=== PATIENT | female | born 1940 | race Caucasian/White ===

== ENCOUNTER 2022-08-21 16:38 | Emergency (ER) | payer MEDICARE, SELFPAY ==
[2022-08-21] VITALS (13 sets, daily range): BP systolic 151–198; BP diastolic 62–94; PULSE 55–68; RESP 15–23; TEMP 36.6–36.8; O2SAT 95–98
--- NOTE | ~2022-08-21 | XR_ITS ---
EXAMINATION: XR ankle RT min 3V, XR tibia fibula RT 2V DATE: 08/21/2022 19:04 INDICATION: Right ankle and lower leg pain TECHNIQUE: 1. Anteroposterior and lateral views of the right tibia and fibula were obtained on overlapping proxi mal and distal images. 2. Anteroposterior, oblique, mortise, and lateral views of the right ankle were obtained. COMPARISON: None. FINDINGS: Patella tabby. Alignment is otherwise normal. No acute fracture. Small triangular corticated ossicle s ituated between the talus and the tip of the lateral malleolus likely heterotopic ossification relate d to chronic lateral ankle sprain. Small Achilles calcaneal enthesophyte. Joint spaces appear relativ conchita preserved. No right knee or ankle joint effusion.. IMPRESSION: 1. Age-indeterminate patella tabby. No acute osseous abnormality at the right lower leg or ankle. Reviewed, dictated and finalized at location A. IMPRESSION: 1. Age-indeterminate patella tabby. No acute osseous abnormality at the right lo wer leg or ankle.
--- NOTE | ~2022-08-21 | CT_ITS ---
EXAMINATION: CTA chest PE protocol DATE: 08/21/2022 18:54 INDICATION: Lower limb pain and elevated d-dimer. TECHNIQUE: Computed tomography (CT) pulmonary angiogram of the chest was performed with 100 mL Omnipa que-350 intravenous contrast. Additional 3D reconstructions utilizing coronal maximum intensity proje ction (MIP) were performed. Automated exposure control and iterative reconstruction technique were em ployed. The dose-length product was 401.51 mGy-cm. COMPARISON: None FINDINGS: Excellent contrast opacification of the pulmonary arteries. There is mild streak artifact from dense contrast in the superior vena cava and right atrium. No significant motion artifact yielding diagnost ic quality study which demonstrates no pulmonary embolism. Mild upper lung predominant emphysema. Mil d discoid atelectasis at the lingula. No pneumonia, pulmonary edema or pleural effusion. Heart size i s normal. Atherosclerotic coronary artery calcific lesion. Aortic valve calcification. These from asc ending thoracic aortic aneurysm measuring up to 4.6 x 4.4 cm maximal diameter. No pathologically enla rged thoracic lymphadenopathy. Cholecystectomy clips at the gallbladder fossa. Visualized upper abdom en is otherwise unremarkable. A few Schmorl's nodes and mild anterior wedging of a few vertebral bodi es in the lower thoracic and upper lumbar spine. IMPRESSION: 1. No pulmonary embolism or other acute cardiopulmonary disease. 2. Mild emphysema. 3. Aortic valve calcific lesion and mild fusiform aneurysm of the ascending thoracic aorta measuring up to 4.6 mm in maximal diameter. Reviewed, dictated and finalized at location A. IMPRESSION: 1. No pulmonary embolism or other acute cardiopulmonary disease. 2. Mild emphysema. 3. Aortic valve calcific lesion and mild fusiform aneurysm of the ascending tho racic aorta measuring up to 4.6 mm in maximal diameter.
--- NOTE | ~2022-08-21 | US_ITS ---
EXAMINATION: US venous doppler [facility] DATE: 08/21/2022 19:07 INDICATION: Bilateral lower limb pain TECHNIQUE: Grayscale ultrasound images without and with compression and Doppler ultrasound images of the bilateral lower extremity veins were obtained. COMPARISON: None. FINDINGS: The visualized portions of right common femoral vein, profunda (deep) femoral vein, femoral vein, pop liteal vein, posterior tibial veins, peroneal veins, gastrocnemius vein and greater saphenous vein ou tflow are patent. The visualized portions of left common femoral vein, profunda femoral vein, femoral vein, popliteal v ein, posterior tibial veins, peroneal veins, gastrocnemius vein and greater saphenous vein outflow ar e patent. IMPRESSION: 1. No deep venous thrombosis in either lower limb. Reviewed, dictated and finalized at location A.
--- NOTE | 2022-08-21 17:47 | ED.EXTPRO ---
HPI - Extremity Problem General Chief complaint: Extremity Problem,Nontraumatic Stated complaint: R leg DVT R/O Time Seen by Provider: 08/21/22 16:59 History of Present Illness HPI Narrative: 82 y/o F with a history of PVD, COPD, lumbosacral radiculopathy, CKD, chronic pain reports for evaluation of chronic leg pain, R>L x many years , worse in the R leg over the past 2 weeks. She has been evaluated multiple times over the past few years for the same pain. States since the R leg worsened she schedules an appointment with her PCP 2 days ago. States her PCP called her today to tell her to go to the ED because she may have a blood clot and needs a CT scan of her whole body. Her blood work on chart review shows an unremarkable CBC, elevated D-dimer of 1.05, unremarkable chemistries other than a creatinine 1.28 and GFR 41. Patient reports the right leg pain extends from her ankle to her knee, is worse with walking and standing for long periods of time. She reports peripheral neuropathy which is unchanged from baseline and sciatica which is unchanged from baseline. She denies strength deficits, loss of bowel or bladder control, saddle anesthesia, fever, rash. She reports shortness of breath which is unchanged from baseline. Denies chest pain. Related Data Home Medications Medication Instructions Recorded Confirmed cholecalciferol (vitamin D3) 50 50 mcg PO DAILY 01/07/22 mcg (2,000 unit) capsule mecobalamin (vitamin B12) 1,000 1,000 mcg PO DAILY 01/07/22 mcg chewable tablet Allergies Allergy/AdvReac Type Severity Reaction Status Date / Time Macrolide Antibiotics Allergy Unknown All Verified 08/19/22 11:25 antibiotics give patient diarrhea azithromycin AdvReac Unknown Unknown Verified 08/19/22 11:25 doxycycline AdvReac Unknown Unknown Verified 08/19/22 11:25 Penicillins AdvReac Unknown Unknown Verified 08/19/22 11:25 Review of Systems Review of Systems: CONSTITUTIONAL: Denies fever, chills EYES: Denies visual changes, redness, or discharge. ENT: Denies rhinorrhea, congestion, sore throat, or otalgia. CARDIOVASCULAR: Denies chest pain, palpitations, or edema. RESPIRATORY: See HPI GASTROINTESTINAL: Denies abdominal pain, nausea, vomiting, or diarrhea. GENITOURINARY: Denies dysuria or hematuria. SKIN: Denies rash or itching. MUSCULOSKELETAL: See HPI NEUROLOGIC: Denies headache, numbness, dizziness, or weakness. PSYCHIATRIC: Denies anxiety or depression. COUNT INCLUDES THE [facility] Past Medical History Medical History History of colon cancer Levoscoliosis Lumbosacral radiculopathy Vitamin D deficiency Surgical History Surgical History H/O: hysterectomy History of appendectomy History of cholecystectomy History of colon resection Family History Family History Sibling Carcinoma of colon, Onset Age: 68 Mother Family history of lung cancer Father Family history of lung cancer, Onset Age: 85 Social History Social History Smoking status: Light tobacco smoker Alcohol intake: never Substance use: never Living arrangements: alone Occupation/Education: retired Agree to blood products: Yes Exam Narrative: GENERAL: Well-appearing, in no acute distress. HEAD: Normocephalic EYES: PERRLA ENT: Nares clear. Mucous membranes moist. Oropharynx without tonsillar hypertrophy exudate or other lesions. NECK: Supple. CHEST: No respiratory distress. Clear to auscultation, no adventitious breath sounds. HEART: Regular rate and rhythm. No murmur heard. Normal peripheral pulses. ABDOMEN: Soft, nontender, normal active bowel sounds. EXTREMITIES: RLE: Tenderness to palpation of the calf and ankle. LLE: No tenderness. Bilateral feet with sensation intact, norm
--- NOTE | 2022-08-21 17:56 | PC.NURSE ---
assessed RLE pedal pulse with bedside doppler at this time.
[2022-08-21 18:34] LABS: Basophils Absolute Auto 0.1 K/mm3 (0.0-0.1); Basophils Percent Auto 0.7 % (0.2-1.2); Eosinophils Absolute Auto 0.2 K/mm3 (0-0.3); Eosinophils Percent Auto 1.5 % (0-4.4); Hematocrit 45.1 % (37.0-47.0); Hemoglobin 15.2 g/dL (12.0-15.0); Immature Granulocyte Absolute 0.02 K/mm3 (0.00-0.031); Immature Granulocyte Percent A 0.2 % (0-0.5); Lymphocytes Absolute Auto 1.15 K/mm3 (0.9-3.2); Lymphocytes Percent Auto 11.7 % (18.3-44.2); Mean Corpuscular HGB Conc 33.7 g/dl (32-36); Mean Corpuscular Hemoglobin 31.1 pg (26-34); Mean Corpuscular Volume 92.2 fl (80-100); Mean Platelet Volume 10.3 fl (7.4-10.4); Monocytes Absolute Auto 0.8 K/mm3 (0.1-0.6); Monocytes Percent Auto 7.8 % (2.6-8.5); Neutrophils Absolute Auto 7.7 K/mm3 (1.3-6.7); Neutrophils Percent Auto 78.1 % (45.5-73.1); Platelet Count Result 265 k/mm3 (150-375); Red Blood Count 4.89 M/mm3 (4.2-5.4); Red Cell Distribution Width 12.7 % (11.5-14.5); White Blood Count 9.8 K/mm3 (4.5-10.0)
[2022-08-21 18:41] LABS: Alanine Aminotransferase 19 U/L (6-35); Albumin Level 4.3 g/dL (3.5-5.1); Alkaline Phosphatase 94 U/L (38-126); Anion Gap 7 mmol/L (8-16); Aspartate Amino Transferase 25 U/L (14-36); Bilirubin,Total 0.5 mg/dL (0.2-1.3); Blood Urea Nitrogen 27 mg/dL (7-17); Calcium 8.9 mg/dL (8.4-10.2); Carbon Dioxide 29 mmol/L (22-30); Chloride 98 mmol/L (98-107); Estimated CRCL calculation 36 ml/min; Estimated Glomerular Filt Rate 43; Glucose 97 mg/dL (65-110); Potassium 4.6 mmol/L (3.4-5.0); Sodium 134 mmol/L (137-145)
[2022-08-21 18:44] LABS: INR 0.9; Partial Thromboplastin Time 28.6 SECONDS (22.3-36.8); Prothrombin Time 12.5 Seconds (11.1-14.7)
[2022-08-21 18:53] LABS: Troponin I < 0.012 ng/mL (0.000-0.034)
[2022-08-21] MEDS: hydrALAZINE HCL 20 MG/ML VIAL 10 MG IV PUSH ×2 (21:39→22:19)
[2022-08-21] MEDS: LORazepam INJ (*CRX) 2 MG/ML VIAL 0.5 MG IV PUSH (22:21)
== END 2022-08-21 23:26 | disposition home or self-care (01) ==
PROVIDERS: Emergency Provider Physician Assistant; PCP Nurse Practitioner Family
DX: I73.9 Peripheral vascular disease, unspecified (principal); I71.21 Aneurysm of the ascending aorta, without rupture; N18.9 Chronic kidney disease, unspecified; J44.9 Chronic obstructive pulmonary disease, unspecified; E55.9 Vitamin D deficiency, unspecified; Z85.038 Personal history of other malignant neoplasm of large intestine; Z90.710 Acquired absence of both cervix and uterus; Z90.49 Acquired absence of other specified parts of digestive tract; F17.200 Nicotine dependence, unspecified, uncomplicated; R79.1 Abnormal coagulation profile
CPT/HCPCS: 36415; 71275; 73590; 73610; 80053; 84484; 85025; 85610; 85730; 93970; 96374; 96375; 96376; 99284; J0360; J2060; Q9967